=== PATIENT | female | born 1995 | race Caucasian/White ===

== ENCOUNTER 2021-11-22 20:58 | Emergency (ER) | payer OTHER ==
[~2021-11-22] VITALS: Ht 157.5 cm; Wt 54.4 kg
[2021-11-23] MEDS ORDERED: MORGIDOX100 MG PO (08:48)
[2021-11-23] MEDS ORDERED: METRONIDAZOLE500 MG PO (08:49)
== END 2021-11-23 09:57 | disposition home or self-care (01) ==
LOC: ER 20:58
DX: N73.8 Other specified female pelvic inflammatory diseases (principal); Z20.822 Contact with and (suspected) exposure to COVID-19